=== PATIENT | female | born 1985 | race Caucasian/White ===

== ENCOUNTER 2020-02-14 14:29 | Outpatient (REF) | payer OTHER, SELFPAY | END 2020-02-14 14:30 | disposition home or self-care (01) | LOC: HO.LAB 14:29 | PROVIDERS: Visit Provider Internal Medicine | DX: Z20.828 Contact with and (suspected) exposure to other viral communicable diseases (principal) | CPT/HCPCS: 87635 ==

== ENCOUNTER → 2020-03-27 13:35 | Outpatient (BNVA) | payer OTHER, SELFPAY | PROVIDERS: Visit Provider Obstetrics & Gynecology | DX: N91.2 Amenorrhea, unspecified (principal) | CPT/HCPCS: 81025; 99212 ==

== ENCOUNTER 2020-05-05 16:21 | Outpatient (REF) | payer OTHER, SELFPAY | END 2020-05-05 16:22 | disposition home or self-care (01) | LOC: HO.LAB 16:21 | PROVIDERS: Visit Provider Internal Medicine | DX: Z20.822 Contact with and (suspected) exposure to COVID-19 (principal) | CPT/HCPCS: 36415; C9803; U0003 ==

== ENCOUNTER 2020-05-16 09:07 | Outpatient (REF) | payer OTHER, SELFPAY | END 2020-05-16 09:08 | disposition home or self-care (01) | LOC: HO.LAB 09:07 | PROVIDERS: Visit Provider Internal Medicine | DX: Z20.822 Contact with and (suspected) exposure to COVID-19 (principal) | CPT/HCPCS: 36415; C9803; U0003 ==